=== PATIENT | female | born 1955 | race Caucasian/White ===

== ENCOUNTER → 2016-06-06 | Outpatient (CLI) | payer BC ==
[~2016-06-06] MED LIST: ATV/2 PO; B-CO-25 PO; CALC500C70 PO; CHOLTAB3 PO; CITA20TA9 PO; CLON0.2T11 PO; CLR10 PO; DICY10CA55 PO; MAGN200T3 PO; MESA1.2T PO; OMEG10007 PO; PRED-301 PO; PRLSR20 PO; TRAMTAB5 PO; VITAMIN E PO
--- NOTE | 2016-06-07 15:17 | MAMMOGRAPHY REPORT ---
BILATERAL DIGITAL SCREENING MAMMOGRAM TOMOSYNTHESIS WITH CAD: 06/06/2016 CLINICAL HISTORY: Asymptomatic. Personal history of breast cancer. TECHNIQUE: Breast tomosynthesis in addition to standard 2D mammography was performed. Current study was also evaluated with a Computer Aided Detection (CAD) system. COMPARISON: Comparison is made to exams dated: 06/01/2015 mammogram, 05/28/2014 mammogram, 05/09/2013 ma mmogram, 03/15/2012 mammogram, 02/16/2011 mammogram, and 02/10/2010 mammogram - [facility]. BREAST COMPOSITION: There are scattered areas of fibroglandular density in both breasts. FINDINGS: There is expected architectural distortion and surgical clips in the central left breast, at the site of prior lumpectomy. There are vascular calcifications bilaterally. There are possible groupings of microcalcifications in the anterior subareolar and 12:00 and upper o uter middle one third of the left breast, for which additional spot magnification views are recommen ded. No other suspicious mass, architectural distortion or cluster of microcalcifications is seen bilater ally. IMPRESSION: ACR BI-RADS CATEGORY 0: INCOMPLETE EVALUATION: NEED ADDITIONAL IMAGING EVALUATION The possible groupings of microcalcifications within the left breast need additional evaluation. The patient will be called to schedule an appointment. Approximately 10% of breast cancers are not detected with mammography. A negative mammographic repor t should not delay biopsy if a clinically suggestive mass is present. Lexis Lopes M.D. ay/:06/06/2016 16:53:27 Flour Mixer Helper: Blu GOMEZ(Eric)(M), [facility] letter sent: Addl Imaging 0 BI-RADS Code: ACR BI-RADS Category 0: Incomplete Evaluation: Need Additional Imaging Evaluation
== END | disposition home or self-care (01) ==
LOC: C.MAMM 07:13
PROVIDERS: ATTEND Nurse Practitioner Adult Health
DX: Z12.31 Encounter for screening mammogram for malignant neoplasm of breast (principal); R92.8 Other abnormal and inconclusive findings on diagnostic imaging of breast; Z85.3 Personal history of malignant neoplasm of breast

== ENCOUNTER → 2016-06-13 | Outpatient (CLI) | payer BC ==
--- NOTE | 2016-06-13 15:17 | MAMMOGRAPHY REPORT ---
UNILATERAL LEFT DIGITAL DIAGNOSTIC MAMMOGRAM: 06/13/2016 CLINICAL HISTORY: 61-year-old woman with a personal history of left breast cancer status post lumpec roberto carlos and radiation, called back from screening mammography for 2 possible clusters of microcalcifica tions in the left breast. TECHNIQUE: Spot magnification left CC and ML views were obtained. COMPARISON: Comparison is made to exams dated: 06/06/2016 mammogram, 06/01/2015 mammogram, 05/28/2014 ma mmogram, 05/09/2013 mammogram, 03/15/2012 mammogram, and 02/16/2011 mammogram - [facility]. BREAST COMPOSITION: There are scattered areas of fibroglandular density in the left breast. FINDINGS: There is expected architectural distortion and associated surgical clips in the central le ft breast, at the site of prior lumpectomy. There are scattered benign-appearing calcifications in the anterior left breast. There is a new small cluster of pleomorphic microcalcifications in the up per outer middle one third of the left breast measuring 2 mm. No associated asymmetry, obvious mass or architectural distortion. This cluster is indeterminate warranting definitive characterization with tissue sampling. Only 3-4 loosely grouped punctate microcalcifications in the anterior, slight ly lateral left breast on the spot magnification CC view which are more benign in appearance. Pendi ng benign pathology results in the upper outer quadrant of the left breast, this loose grouping of p unctate microcalcifications can be followed in 6 months. IMPRESSION: ACR BI-RADS CATEGORY 4B: INTERMEDIATE SUSPICION FOR MALIGNANCY 1. Left breast stereotactic guided biopsy is recommended for a 2 mm cluster of pleomorphic microcal cifications in the upper outer middle to posterior breast. 2. Pending benign pathology results, a loose grouping of punctate microcalcifications in the anteri or, slightly lateral left breast can be followed in 6 months to ensure stability. These results and recommendations were discussed with the patient at the time of the exam. She tent atively scheduled the biopsy prior to leaving our department. Approximately 10% of breast cancers are not detected with mammography. A negative mammographic repor t should not delay biopsy if a clinically suggestive mass is present. Lexis Lopes M.D. ay/:06/13/2016 14:04:27 Capsule Filler: Malika BAXTER)(Sarah), [facility] letter sent: Abnormal 4/5 BI-RADS Code: ACR BI-RADS Category 4B: Intermediate Suspicion For Malignancy
== END | disposition home or self-care (01) ==
LOC: C.MAMM 12:50
PROVIDERS: ATTEND Student in an Organized Health Care Education/Training Program
DX: R92.0 Mammographic microcalcification found on diagnostic imaging of breast (principal)

== ENCOUNTER → 2016-06-16 | Outpatient (CLI) | payer BC ==
--- NOTE | 2016-06-16 08:42 | Discharge Instructions ---
Discharge Instructions Procedure Procedure Date: Jun 16, 2016. Reason for visit: Left Calcifications. Discharge Discharge Date: Jun 16, 2016. Discharge Diagnosis: status post breast biopsy Instructions Activity Recommendations: Additional Limitations (see below) Return to School/Work: no limitations Recommended Home Diet: No Limitations Provider Instructions: ACTIVITY RECOMMENDATIONS: * No lifting, pushing, pulling or exercising the affected side for three days. RETURN TO SCHOOL/WORK: * You may return to work/school after the procedure, but do not perform any strenuous activities for 24 to 48 hours. MEDICATIONS: * Tylenol (two 325 mg) every four to six hours if needed for mild pain (if not allergic to Tylenol). DIET: * Resume previous diet. SPECIAL CARE INSTRUCTIONS: * Keep biopsy site dry for 24 hours. May shower after 24 hours, but do not soak (bathe) incision. * May remove Tegaderm (plastic patch) tomorrow AFTER showering. * Leave the steri-strips on for one week. Allow the steri-strips to fall off by themselves. If not off after one week, you may remove them. You may place a Bandaid crosswise over the strips, if desired. * Apply ice 10 minutes on and 10 minutes off as needed. * Wear a bra at bedtime to sleep more comfortably for 2-3 days. * Your referring physician should have the results after approximately 5 to 7 business days. * Call for unusual bleeding, fever, drainage, etc or if you have any questions call during normal business hours or after hours call Dr Zheng, . FOLLOW UP VISIT: Follow-up with Referring Physician as scheduled. Allergies Coded Allergies: Guaifenesin (Verified Allergy, Unknown, PALPITATIONS, 11/03/15) [facility] Recommendations: Call your doctor if: * Temperature above 101 degrees * Pain not relieved by pain medicine ordered * There is increased drainage or redness from any incision * You have any unanswered questions or concerns. Your Doctors Instructions noted above were prepared by provider Caron Zheng. Patient Signature Section: Patient Instructions Signature Page Carlotta Santos Patient (or Guardian) Signature/Date: I have read and understand the instructions given to me by my caregivers. Caregiver/RN/Doctor Signature/Date: The above-named patient and/or guardian has received patient instructions on this date. + Original Patient Signature Page (only) stays with chart. Please make copy for patient.
--- NOTE | 2016-06-16 13:05 | MAMMOGRAPHY REPORT ---
UNILATERAL LEFT DIGITAL DIAGNOSTIC MAMMOGRAM: 06/16/2016 CLINICAL HISTORY: Status post left breast stereotactic biopsy. TECHNIQUE: Postprocedural left CC and LM views were obtained. COMPARISON: Comparison is made to exams dated: 06/06/2016 mammogram, 06/01/2015 mammogram, 05/28/2014 ma mmogram, 05/09/2013 mammogram, and 03/15/2012 mammogram - [facility]. BREAST COMPOSITION: There are scattered areas of fibroglandular density in the left breast. FINDINGS: A preprocedural left LM view was obtained for biopsy planning purposes. Postprocedural m ammograms show a new biopsy marker clip within the left upper outer quadrant at the site of the biop sied calcifications. No significant postbiopsy hematoma is seen. IMPRESSION: POST PROCEDURE IMAGING FOR MARKER PLACEMENT New biopsy marker clip status post left breast stereotactic biopsy. Pathology results are pending. Pending benign pathology results, a loose grouping of punctate microcalcifications in the anterior, slightly lateral left breast can be followed in 6 months to ensure stability. Approximately 10% of breast cancers are not detected with mammography. A negative mammographic repor t should not delay biopsy if a clinically suggestive mass is present. Caron Zheng M.D. ah/:06/16/2016 08:52:04 Attending Technologist: Jael BAXTER)(Sarah), [facility] Co Founder And Chairman: Elisha Arndt, [facility] BI-RADS Code: Post Procedure Imaging For Marker Placement
--- NOTE | 2016-06-16 13:05 | MAMMOGRAPHY REPORT ---
STEREOTACTIC GUIDED BIOPSY LEFT BREAST: 06/16/2016 CLINICAL HISTORY: Indeterminate calcifications in the left upper outer quadrant. PATIENT CONSENT: The procedure, risks, benefits, and alternatives of stereotactic biopsy with clip p adrian were discussed with the patient, and verbal and written consent was obtained. A timeout wa s performed immediately prior to the procedure. PROCEDURE DESCRIPTION: With stereotactic guidance, aseptic technique, and lidocaine as a local anest hetic (1% lidocaine to anesthetize the skin and 1% lidocaine with epinephrine to anesthetize the spike per tissues), the area of concern was sampled multiple times with a 9-gauge vacuum-assisted biopsy n eedle (Adcade Eviva). The path of approach was lateral. The specimen radiograph demonstrates calcif ications to be present in the samples. The samples containing calcifications (labeled "A") were sep arated from the samples without calcifications (labeled "B"). A metallic marker clip was placed at the biopsy site. This was confirmed on postprocedure mammograms. Direct pressure was applied at th e biopsy site and hemostasis was readily achieved. The patient tolerated the procedure without comp lication. She was given wound care instructions. COMPARISON: Comparison is made to exams dated: 06/13/2016 mammogram, 06/06/2016 mammogram, 06/01/2015 m ammogram, 05/28/2014 mammogram, 05/09/2013 mammogram, and 03/15/2012 mammogram - [facility] enter. IMPRESSION: STEREOTACTIC GUIDED BIOPSY Stereotactic biopsy of indeterminate calcifications in the left upper outer quadrant, with clip bashir lundberg. The patient will receive pathology results from her referring provider. Pending benign pathology results, a loose grouping of punctate microcalcifications in the anterior, slightly lateral left breast can be followed in 6 months to ensure stability. Caron Zheng M.D. /:06/16/2016 08:46:01 Attending Technologist: Jael BAXTER)(Sarah), [facility] Insurance Verify Rep: Elisha Arndt, [facility]
== END | disposition home or self-care (01) ==
LOC: C.MAMM 07:38
PROVIDERS: ATTEND Student in an Organized Health Care Education/Training Program
DX: D24.2 Benign neoplasm of left breast (principal); R92.0 Mammographic microcalcification found on diagnostic imaging of breast